=== PATIENT | female | born 1990 | race Asian ===

== ENCOUNTER 2020-04-07 12:10 | Emergency (ER) | payer OTHER ==
[~2020-04-07] VITALS: Ht 162.6 cm; Wt 63.5 kg
[2020-04-07 12:16] VITALS: Ht 162.6 cm; Wt 63.5 kg
[2020-04-07 12:44] VITALS: BP 114/75
== END 2020-04-07 12:44 | disposition home or self-care (01) ==
LOC: ED 12:10
DX: S61.432A Puncture wound without foreign body of left hand, initial encounter (principal); W46.0XXA Contact with hypodermic needle, initial encounter; Y93.89 Activity, other specified; Y92.89 Other specified places as the place of occurrence of the external cause; Y99.8 Other external cause status